=== PATIENT | male | born 1995 | race Caucasian/White ===

== ENCOUNTER 2024-08-13 15:00 | Inpatient (IN) | payer OTHER ==
[~2024-08-13] VITALS: Ht 162.6 cm; Wt 54.0 kg
[2024-08-13] MEDS ORDERED: Ondansetron HCl 2 MG / ML 2ML Vial IV ONE (15:25)
[2024-08-13] MEDS ORDERED: HYDROmorphone HCl/Pf 1MG SYR IV ONE ×2 (15:25→17:00)
[2024-08-13] MEDS ORDERED: Propofol 10mg/ml 20 ml Vial (Procedural) IV SCH (15:45)
[2024-08-13] MEDS ORDERED: NS 1,000 ML IV ONE (16:19)
[2024-08-13] MEDS ORDERED: NS 1,000 ML IV SCH ×2 (16:40→23:30)
[2024-08-13 17:22] LABS: BASOPHILS ABSOLUTE AUTO 0.04 K/mm3 (0.00-0.23); BASOPHILS PERCENT AUTO 0 % (0-2); EOSINOPHILS ABSOLUTE AUTO 0.03 K/mm3 (0.00-0.68); EOSINOPHILS PERCENT AUTO 0 % (0-6); Hematocrit 43.2 % (37.0-53.0); IMMATURE GRAN ABSOLUTE AUTO 0.04 K/mm3 (0.00-0.10); IMMATURE GRAN PERCENT AUTO 0 % (0-1); LYMPHOCYTES PERCENT AUTO 7 % (21-46); MONOCYTES ABSOLUTE AUTO 0.46 K/mm3 (0.16-1.47); MONOCYTES PERCENT AUTO 3 % (4-13); Mean Corpuscular HGB 30.2 pg (26.0-34.0); Mean Corpuscular HGB Conc 34.7 g/dL (31.5-36.5); Mean Corpuscular Volume 87 fL (80-100); Mean Platelet Volume 9.7 fL (9.1-12.4); NEUTROPHILS ABSOLUTE AUTO 12.28 K/mm3 (1.96-9.15); NEUTROPHILS PERCENT AUTO 89 % (41-73); Platelet Count 211 K/mm3 (150-400); RDW Coefficient Variation 11.4 % (11.7-14.2); RDW Standard Deviation 36.1 fL (35.1-46.3); Red Blood Cell Count 4.96 M/mm3 (4.30-5.90); White Blood Cell Count 13.85 K/mm3 (4.00-11.30)
[2024-08-13 17:37] LABS: Albumin, Blood 3.4 g/dL (3.4-5.0); Albumin/Globulin Ratio 1.1 (0.8-1.8); Bilirubin, Total 0.5 mg/dL (0.1-1.0); Bun/Creatinine Ratio 12.6 (12.0-20.0); Calcium, Blood 8.1 mg/dL (8.5-10.1); Creatinine, Blood 0.72 mg/dL (0.60-1.20); Globulin, Blood 3.2 g/dL (2.2-4.0); Total Protein, Blood 6.6 g/dL (6.4-8.2)
[2024-08-13] MEDS ORDERED: FLU VACC TS2024-25(6MOS UP)/PF 45 MCG/0.5 ML SYRINGE IM SCH (18:30)
[2024-08-13] MEDS ORDERED: FentaNYL Citrate 50 MCG/ML 2 ML Injection IV PRN (18:35)
[2024-08-13] MEDS ORDERED: OxyCODONE 5 mg/Acetamin 325 mg TABLET PO PRN (18:35)
[2024-08-13] MEDS ORDERED: Ondansetron HCl 2 MG / ML 2ML Vial IV PRN (18:35)
[2024-08-13] MEDS ORDERED: Metoclopramide HCl 5MG / ML 2ML Vial IV PRN (18:35)
[2024-08-13] MEDS ORDERED: Ketorolac Tromethamine 15mg Vial IV PRN (18:55)
[2024-08-13 19:52] VITALS: BP 157/91
[2024-08-13] MEDS ORDERED: Sennosides 8.6 MG Tab PO SCH (21:00)
--- NOTE | 2024-08-13 21:27 | NUR ---
ARRIVAL TO UNIT PT TRANSFERRED FROM ED TO SURGICAL FLOOR AT 1945. A&OX4. ABLE TO VOICE NEEDS. PLEASANT & COOPERATIVE WITH CARES. BEDREST ORDERS FOR LLE FRACTURE WITH PLANS FOR SURGERY TOMORROW. ORIENTED PT TO UNIT, GOALS & EXPECTATIONS FOR THE NIGHT. PT VOICED UNDERSTANDING OF PLAN OF CARE, DENIES QUESTIONS/CONCERNS AT THIS TIME.
--- NOTE | 2024-08-14 04:22 | NUR ---
SHIFT SUMMARY NO ACUTE CHANGES OVERNIGHT. NPO AT MIDNIGHT IN PREPARATION FOR SURGERY TODAY FOR LEFT TIB/FIB FRACTURE. PAIN MANAGED USING NPIS AND PER EMAR. DISTAL CMS INTACT ON AFFECTED EXTREMITY. A&OX4. PLEASANT & COOPERATIVE WITH CARES. ABLE TO VOICE NEEDS; USED CALL LIGHT APPROPRIATELY T/O SHIFT. PT ABLE TO REST DURING SHIFT. PT VOICED UNDERSTANDING OF PLAN OF CARES; DENIES QUESTIONS/CONCERNS AT THIS TIME.
[2024-08-14 05:23] VITALS: BP 105/65
[2024-08-14 05:48] LABS: Hematocrit 41.8 % (37.0-53.0); Hemoglobin 14.4 g/dL (13.5-17.5); Mean Corpuscular HGB 30.3 pg (26.0-34.0); Mean Corpuscular HGB Conc 34.4 g/dL (31.5-36.5); Mean Corpuscular Volume 88 fL (80-100); Mean Platelet Volume 9.4 fL (9.1-12.4); Platelet Count 197 K/mm3 (150-400); RDW Coefficient Variation 11.5 % (11.7-14.2); RDW Standard Deviation 36.8 fL (35.1-46.3); Red Blood Cell Count 4.75 M/mm3 (4.30-5.90); White Blood Cell Count 8.22 K/mm3 (4.00-11.30)
[2024-08-14 07:21] VITALS: BP 122/82
--- NOTE | 2024-08-14 08:30 | NUR ---
UPDATE PT CONCERNED ABOUT COST OF SURGERY, HE IS NOT A LOCAL RESIDENT AND NOT INSURED. CARE MANAGEMENT NOTIFIED AND WILL LOOK INTO OPTIONS FOR PT. SURGEON AWARE AND UPDATED. PT KEPT NPO AT THIS TIME.
[2024-08-14] MEDS ORDERED: Docusate Sodium 100 MG Cap PO SCH (09:00)
[2024-08-14] MEDS ORDERED: CeFAZolin Sodium 2,000 MG in NS 100 ML IV SCH (11:10)
[2024-08-14] MEDS ORDERED: Tranexamic Acid 1,000 MG in NS 100 ML IV SCH (11:10)
--- NOTE | 2024-08-14 13:15 | NUR ---
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 HE DIDN'T WANT FULL DOSE OF FENTANYL SO 25MCG WAS GIVEN IV IN ADDITION TO TORADOL. ANOTHER 25MCG OF FENTANYL WAS GIVEN SHORTLY AFTER. PT NOTED TO HAVE VERY RAPID BREATHING AND IN PANICKED STATE. PT C/O NUMBNESS IN HANDS, FEET AND FACE WITH CRAMPING IN FINGERS. PT ENCOURAGED TO SLOW HIS BREATHING DOWN AND THAT THE SENSATIONS WERE PROBABLY RELATED TO HIS RAPID BREATHING. AFTER A SHORT PERIOD OF TIME WITH SLOW AND CONTROLLED BREATHING, HIS SYMPTOMS RESOLVED AND HE SEEMED TO BE MUCH MORE CALM. I STAYED WITH PT FOR APPROX 10 MIN UNTIL HE FELT CALM ENOUGH FOR ME TO LEAVE. PT HAS CALL LIGHT IN REACH.
[2024-08-14 13:51] VITALS: BP 135/98
[2024-08-14] MEDS ORDERED: EpiNEPhrine 1 MG/1 ML 1ML Vial ONE (14:34)
[2024-08-14] MEDS ORDERED: Dexamethasone Sod Phos 10 MG/ML 1ML VIAL ONE (14:34)
[2024-08-14] MEDS ORDERED: propofoL 0 ML IV ONE (14:36)
[2024-08-14] MEDS ORDERED: FentaNYL Citrate 50 MCG/ML 2 ML Injection ONE (14:44)
--- NOTE | 2024-08-14 15:37 | NUR ---
UPDATE PT HAS NOT HAD ANY EPISODES OF INTENSE PAIN AFTER LAST NOTE. PT ALSO CALM AT THIS TIME. AWAITING OR.
[2024-08-14 16:48] VITALS: BP 132/93
--- NOTE | 2024-08-14 16:52 | NUR ---
SHIFT SUMMARY PT A/OX4. KEPT NPO UNTIL AFTERNOON WHEN OR WAS CANCELLED. PT NOW ON REG DIET UNTIL MIDNIGHT AND ISMAEL WELL. MEDICATED PRN FOR PAIN WITH GOOD RESULTS. PT HAD AN EPISODE OF INTENSE PAIN WITH PANIC ATTACK BUT WAS ABLE TO CALM HIMSELF DOWN WITH REASSURANCE AND CONTROLLED BREATHING. PT HAS BEEN USING HIS PHONE MOST OF THE DAY AND ENGAGING IN HIS YOUTUBE CHANNEL. SPIRITS ARE GOOD NOW AND PT UPDATED THAT SURGERY IS PLANNED FOR MORNING TOMORROW. SIDE RAILS UP AND CALL LIGHT IN REACH.
[2024-08-14 19:29] VITALS: BP 120/82
--- NOTE | 2024-08-14 22:19 | NUR ---
PATIENT COMMUNICATION ENGINEERING MGR NOTIFIED THAT PERSONAL VIDEO OF HOSPITAL STAFF WAS UPLOADED TO PT'S YOUTUBE CHANNEL TODAY. SECURITY NOTIFIED. THIS RN AND SECURITY DISCUSSED HOSPITAL POLICEY WITH PATIENT. PT AGREEABLE TO ADHERE TO PROTOCOL PER SECURITY.
[2024-08-15] VITALS (16 sets, daily range): BP systolic 119–143; BP diastolic 72–100
[2024-08-15 04:50] LABS: BASOPHILS ABSOLUTE AUTO 0.04 K/mm3 (0.00-0.23); BASOPHILS PERCENT AUTO 1 % (0-2); EOSINOPHILS ABSOLUTE AUTO 0.32 K/mm3 (0.00-0.68); EOSINOPHILS PERCENT AUTO 4 % (0-6); Hematocrit 42.5 % (37.0-53.0); Hemoglobin 14.9 g/dL (13.5-17.5); IMMATURE GRAN ABSOLUTE AUTO 0.01 K/mm3 (0.00-0.10); IMMATURE GRAN PERCENT AUTO 0 % (0-1); LYMPHOCYTES ABSOLUTE AUTO 2.56 K/mm3 (0.84-5.20); LYMPHOCYTES PERCENT AUTO 32 % (21-46); MONOCYTES ABSOLUTE AUTO 0.56 K/mm3 (0.16-1.47); MONOCYTES PERCENT AUTO 7 % (4-13); Mean Corpuscular HGB 30.7 pg (26.0-34.0); Mean Corpuscular HGB Conc 35.1 g/dL (31.5-36.5); Mean Corpuscular Volume 88 fL (80-100); Mean Platelet Volume 9.7 fL (9.1-12.4); NEUTROPHILS ABSOLUTE AUTO 4.56 K/mm3 (1.96-9.15); NEUTROPHILS PERCENT AUTO 57 % (41-73); Platelet Count 191 K/mm3 (150-400); RDW Coefficient Variation 11.5 % (11.7-14.2); RDW Standard Deviation 36.7 fL (35.1-46.3); Red Blood Cell Count 4.85 M/mm3 (4.30-5.90); White Blood Cell Count 8.05 K/mm3 (4.00-11.30)
[2024-08-15 05:06] LABS: Bun/Creatinine Ratio 14.8 (12.0-20.0); Calcium, Blood 8.5 mg/dL (8.5-10.1); Creatinine, Blood 0.88 mg/dL (0.60-1.20)
--- NOTE | 2024-08-15 05:46 | NUR ---
SHIFT SUMMARY NO ACUTE CHANGES DURING SHIFT. PAIN MANAGED PER EMAR. PLEASANT AND COOPERATIVE, VSS. NPO SINCE MIDNIGHT. IVF INFUSING PER ORDER. PLAN FOR SURGERY TODAY. WILL GIVE REPORT TO ONCOMING RN.
[2024-08-15] MEDS ORDERED: propofoL 20 ML IV ONE (07:57)
[2024-08-15] MEDS ORDERED: Lidocaine HCl 2% 20 ML MDV ONE (07:58)
[2024-08-15] MEDS ORDERED: FentaNYL Citrate 50 MCG/ML 2 ML Injection ONE ×3 (07:58→12:00)
--- NOTE | 2024-08-15 07:58 | NUR ---
PATIENT TRANSFERRED OFF UNIT FOR PROCEDURE
[2024-08-15] MEDS ORDERED: CeFAZolin Sodium 1000 mg Vial ONE (08:13)
[2024-08-15] MEDS ORDERED: EpiNEPhrine 1 MG/1 ML 1ML Vial ONE (08:15)
[2024-08-15] MEDS ORDERED: Bupivacaine 0.5% HCl 5 MG/ML 30MLVIAL ONE (08:15)
[2024-08-15] MEDS ORDERED: Dexamethasone Sod Phos 10 MG/ML 1ML VIAL ONE (08:16)
[2024-08-15] MEDS ORDERED: Ondansetron HCl 2 MG / ML 2ML Vial ONE (09:25)
[2024-08-15] MEDS ORDERED: Ketorolac Tromethamine 30mg Vial ONE (11:43)
--- NOTE | 2024-08-15 11:48 | NUR ---
08/15/24 1148 Estrellita Cherry ALL CPONTS CORRECT.
--- NOTE | 2024-08-15 12:26 | NUR ---
TRANSFER FROM PACU AFTER RECEIVING REPORT FROM STOCK DEALER, PATIENT TRANSFERRED TO UNIT AT APPROX 1215. PATIENT LETHARGIC, EASILY AROUSABLE WITH VERBAL STIMULI BUT QUICKLY GOES BACK TO SLEEP. S/P L INTRAMEDULLARY RODDING - DRESSING C/D/I, NO SHADOWING NOTED ON MICHAEL WRAP. VSS. ON 2L VIA NC, SATs >90%. RR EVEN, UNLABORED. CALL LIGHT IN REACH. WILL CONTINUE TO MONITOR. UPDATE PROVIDED TO PATIENTs MOTHER OVER THE PHONE REGARDING PATIENT STATUS.
--- NOTE | 2024-08-15 14:54 | NUR ---
REPORT GIVEN TO JERMAN FONTAINE TO ASSUME CARE AT THIS TIME
[2024-08-15] MEDS ORDERED: CeFAZolin Sodium 2,000 MG in NS 100 ML IV SCH (16:00)
--- NOTE | 2024-08-15 19:47 | NUR ---
SHIFT SUMMARY PO0 L TIBIAL RODDING, A/OX4, VSS, TOLERATING PO, WORKED WITH THERPAY POST OPPERATIVELY, PAIN WELL MANAGED. LLE WRAPPED IN AN MICHAEL WRAP FOOT TO MID THIGH AND IS C/D/I. NO ACUTE EVENTS THIS SHIFT, CALL LIGHT IN REACH.
--- NOTE | 2024-08-16 05:49 | NUR ---
SHIFT SUMMARY NO ACUTE CHANGES. MICHAEL WRAP TO LEFT LEG. PT AMBULATING WITH FWW, GB, SBA. PAIN MANAGE PER EMAR. ISMAEL PO INTAKE. REPOSITIONED PER EMAR. ICE TO LLE APPLIED. SHE ALLOWS. IV SL. WILL GIVE REPORT TO BERENICE FONTAINE
[2024-08-16 07:24] VITALS: BP 129/84
[2024-08-16] MEDS ORDERED: Aspirin 81 MG TabEC PO SCH (09:00)
--- NOTE | 2024-08-16 10:26 | NUR ---
MORNING NOTE THIS RN ASSUMED CARE AT 0715. PATIENT ALERT AND ORIENTED X4. COMMUNICATING NEEDS EFFECTIVELY. VSS. ON ROOM AIR, SATs >90%. RR EVEN, UNLABORED. POD 1 L RODDING - DRESSING C/D/I, NO SHADOWING NOTED. TOLERATING PO INTAKE. PAIN MANAGED PER EMAR AND WITH AN ICE PACK. AWAITING PHYSICAL THERAPY EVAL. CALL LIGHT IN REACH.
[2024-08-16] MEDS ORDERED: ASPI81CH PO (14:35)
[2024-08-16 15:34] VITALS: BP 123/106
[2024-08-16 15:35] VITALS: BP 122/100
[2024-08-16 16:48] VITALS: BP 135/95
--- NOTE | 2024-08-16 17:20 | NUR ---
SHIFT SUMMARY NO ACUTE EVENTS SINCE PREVIOUS DOCUMENTATION. VSS. ABLE TO AMBULATE IN HALLWAY WITH CRUTCHES - SBA FROM STAFF. SAT IN RECLINER CHAIR FOR MAJORITY OF THE AFTERNOON. MANAGING PAIN PER EMAR AND WITH ICE PACK. DRESSING TO LLE C/D/I, NO SHADOWING NOTED. DC HOME ORDER IN PLACE - IS ABLE TO DC ONCE CARE MANAGEMENT IS ABLE TO ARRANGE INSURANCE COVERAGE FOR CRUTCHES, WALKER. PATIENT's FATHER IS IN THE PROCESS OF DRIVING FROM [place] TO PICK PATIENT UP FOR DC. CALL LIGHT IN REACH. WILL CONTINUE TO MONITOR AND REPORT TO ONCOMING RN.
[2024-08-16 20:29] VITALS: BP 132/91
--- NOTE | 2024-08-17 04:18 | NUR ---
SHIFT SUMMARY ENRIQUE WAS ALERT AND FULLY ORIENTED ON ASSESMENT. CIRCULATION AND SENSATION INTACT TO DISTAL EXTREMETIES, PT PAIN MODERATELY WELL CONTROLLED AT THIS TIME. MICHAEL DRESSING IS C/D/I. NO ACUTE EVENTS TONIGHT. NO CHANGES TO CONDITION NOTED. PT RESTING WITH CALL LIGHT IN REACH.
[2024-08-17 04:58] VITALS: BP 128/81
[2024-08-17 07:07] VITALS: BP 126/91
[2024-08-17] MEDS ORDERED: Percocet 5-3251 EACH PO (10:56)
--- NOTE | 2024-08-17 12:05 | NUR ---
DISCHARGE WORKED w/ THERAPY. PAIN CONTROLLED. EATING, DRINKING, & VOIDING. USING FWW WELL. FEELS COMFORTABLE w/ DC; PLANS TO STAY w/ FRIEND FOR 2 WEKS & F/U w/ ORTHO. ESCORTED OUT VIA WC.
== END 2024-08-17 12:21 | disposition home or self-care (01) | DRG 494 ==
LOC: ER 15:00 → SURS 18:29
PROVIDERS: Nurse Practitioner Acute Care; Orthopaedic Surgery Sports Medicine; Student in an Organized Health Care Education/Training Program; ADMIT Internal Medicine
PROC: 0QSHXZZ Reposition Left Tibia, External Approach (ICD-10-PCS; 2024-08-13)
PROC: 0QSKXZZ Reposition Left Fibula, External Approach (ICD-10-PCS; 2024-08-13)
PROC: 0QHH34Z Insertion of Internal Fixation Device into Left Tibia, Percutaneous Approach (ICD-10-PCS; principal; 2024-08-15 08:00)
DX: S82.302A Unspecified fracture of lower end of left tibia, initial encounter for closed fracture (principal); S82.832A Other fracture of upper and lower end of left fibula, initial encounter for closed fracture; I10 Essential (primary) hypertension; D72.829 Elevated white blood cell count, unspecified; V29.008A Other motorcycle driver injured in collision with unspecified motor vehicles in nontraffic accident, initial encounter; Y93.55 Activity, bike riding
CPT/HCPCS: 27752; 36415; 73590; 76000; 80048; 80053; 85025; 85027; 96361-59; 96374-59; 96375-59; 96376-59; 97110; 97116; 97161; 97530; 99152; 99285-25; A9270; C1713; C1769; J0171; J0690; J1100; J1171; J1885; J2405; J2704; J3010; J7030